=== PATIENT | male | born 1955 | race Caucasian/White ===

== ENCOUNTER 2017-01-20 19:37 | Inpatient (IN) ==
[2017-01-20 20:04] LABS: Bilirubin,Urine Negative (Negative); Blood,Urine Negative (Negative); Clarity,Urine Clear (Clear); Color,Urine Yellow (Yellow); Glucose,Urine (UA) Normal (Normal); Ketones,Urine Negative (Negative); Leukocyte Esterase,Urine Negative (Negative); Nitrite,Urine Negative (Negative); PH,Urine 6.5 pH Units (5.0-8.0); Protein,Urine Negative (Neg-Trace); Specific Gravity,Urine 1.017 (1.010-1.025); Urobilinogen,Urine Normal (Normal)
[2017-01-20] MEDS ORDERED: *HR* HYDROmorphone (PF) 1 MG/ML SYRINGE IVP ONE (20:08)
[2017-01-20] MEDS ORDERED: Famotidine 20 MG/2 ML VIAL IVP ONE (20:08)
[2017-01-20] MEDS ORDERED: Ondansetron 4 MG/2 ML VIAL IVP ONE (20:08)
--- NOTE | 2017-01-20 20:10 | Emergency Department Note ---
Disposition Clinical Impression: Small bowel obstruction Disposition: Admitted As Inpatient Condition: Good Referrals: NONE,PCP [Primary Care Provider] - Forms: ED Satisfaction Letter, Work/School Release General Adult HPI - General Chief complaint: ED Abdominal Pain Stated complaint: abd pain Time Seen by Provider: 01/20/17 19:59 Source: patient Limitations: no limitations - History of Present Illness Pain Scale: 7 - Related Data Allergies Allergy/AdvReac Type Severity Reaction Status Date / Time No Known Allergies Allergy Verified 01/20/17 19:56 Past Medical History - Past Medical History Medical history: Reports: hypertension Psychiatric history: Reports: no psych history - Social History Smoking Status: Never smoker Alcohol use: Reports: none Drug use: Reports: none Physical Exam - General Limitations: no limitations General appearance: alert, in no apparent distress Course Vital Signs Temperature 98 F 01/20/17 19:50 Pulse Rate 124 01/20/17 19:50 Respiratory Rate 20 01/20/17 19:50 Blood Pressure 131/84 01/20/17 19:50 O2 Sat by Pulse Oximetry 96 01/20/17 19:50 Temperature 98 F 01/20/17 19:50 Pulse Rate 110 01/20/17 21:55 Respiratory Rate 20 01/20/17 21:55 Blood Pressure 139/92 01/20/17 21:55 O2 Sat by Pulse Oximetry 96 01/20/17 21:55 Oxygen Delivery Oxygen Delivery Room Air Medical Decision Making - Lab Data Result diagrams: 01/20/17 20:15 01/20/17 20:15 Lab Results 01/20/17 01/20/17 01/20/17 Range/Units 19:45 20:15 20:15 WBC 9.9 (4.3-11.1) K/mcL RBC 4.79 (4.19-5.50) M/mcL Hgb 14.7 (12.9-16.9) g/dL Hct 43.5 (37.5-50.1) % MCV 90.8 (83.0-100.0) fL MCH 30.7 (28.0-33.3) pg MCHC 33.8 (31.6-35.5) g/dL RDW 13.1 (11.5-14.5) % Plt Count 249 (140-400) K/mcL MPV 9.6 (9.4-12.4) fL Immature Gran % 0.3 (0-4) % Seg Neutrophils % 75.1 % Lymphocytes % 12.0 % Monocytes % 10.4 % Eosinophils % 1.9 % Basophils % 0.3 % Neutrophils # 7.4 (1.6-8.9) K/mcL Lymphocytes # 1.2 (0.6-4.6) K/mcL Monocytes # 1.0 (0.0-1.3) K/mcL Eosinophils # 0.2 (0.0-0.6) K/mcL Basophils # 0.0 (0.0-0.2) K/mcL Immature Plt Fraction 3.2 (1.1-6.1) % PT (9.4-12.1) Seconds INR APTT (26.0-36.0) Seconds Sodium 137 (136-145) mEq/L Potassium 4.0 (3.5-4.5) mEq/L Chloride 104 (98-109) mEq/L Carbon Dioxide 23 (19-29) mEq/L BUN 15 (8-26) mg/dL Creatinine 1.08 (0.72-1.25) mg/dL Est GFR ( Amer) > 60 (> 60) Est GFR (Non-Af Amer) > 60 (> 60) BUN/Creatinine Ratio 14 (6-26) Glucose 114 H (70-99) mg/dL Calculated Osmolality 286 (280-300) Calcium 9.4 (8.6-10.8) mg/dL Total Bilirubin 0.8 (0.2-1.2) mg/dL Direct Bilirubin 0.4 (0.0-0.5) mg/dL Indirect Bilirubin 0.4 (0.0-1.2) mg/dL AST 57 H (5-34) Units/L ALT 97 H (0-55) Units/L Alkaline Phosphatase 106 (38-126) Units/L Troponin I (0-0.03) ng/mL Serum Total Protein 7.4 (6.0-8.3) g/dL Albumin 3.7 (3.5-5.0) g/dL Globulin 3.7 H (2.4-3.5) g/dL Albumin/Globulin Ratio 1.0 L (1.1-2.2) Lipase 13 (8-78) Units/L Urine Color Yellow (Yellow) Urine Clarity Clear (Clear) Urine pH 6.5 (5.0-8.0) pH Units Ur Specific [place] 1.017 (1.010-1.025) Urine Protein Negative (Neg-Trace) mg/dL Urine Glucose (UA) Normal (Normal) mg/dL Urine Ketones Negative (Negative) mg/dL Urine Blood Negative (Negative) Urine Nitrite Negative (Negative) Urine Bilirubin Negative (Negative) Urine Urobilinogen Normal (Normal) mg/dL Ur Leukocyte Esterase Negative (Negative) Ur Culture Indicated? NO (NO) 01/20/17 01/20/17 Range/Units 20:15 20:15 WBC (4.3-11.1) K/mcL RBC (4.19-5.50) M/mcL Hgb (12.9-16.9) g/dL Hct (37.5-50.1) % MCV (83.0-100.0) fL MCH (28.0-33.3) pg MCHC (31.6-35.5) g/dL RDW (11.5-14.5) % Plt Count (140-400) K/mcL MPV (9.4-12.4) fL Immature Gran % (0-4) % Seg Neutrophils % % Lymphocytes % % Monocytes % % Eosinophils % % Basophils % % Neutrophils # (1.6-8.9) K/mcL Lymphocytes # (0.6-4.6) K/mcL Monocytes # (0.0-1.3) K/mcL Eosinophils # (0.0-0.6) K/mcL Basophils # (0.0-0.2) K/mcL Immature Plt Fraction (1.1-6.1) % PT 12.2 H (9.4-12.1) Seconds INR 1.1 APTT 30.3 (26.0-36.0) Seconds Sodium (136-145) mEq/L Potassium (3.5-4.5) mEq/L Chloride (98-109) mEq/L Carbon Dioxide (19-29) mEq/L BUN (8-26) mg/dL Creatinine (0.72-1.25) mg/dL Est GFR ( Amer) (> 60) Est GFR (Non-Af Amer) (> 60) BUN/Creatinine Ratio (6-26) Glucose (70-99) mg/dL Calculated Osmolality (280-300) Calcium (8.6-10.8) mg/dL Total Bilirubin (0.2-1.2) mg/dL Direct Bilirubin (0.0-0.5) mg/dL Indirect Bilirubin (0.0-1.2) mg/dL AST (5-34) Units/L ALT (0-55) Units/L Alkaline Phosphatase (38-126) Units/L Troponin I 0.00 (0-0.03) ng/mL Serum Total Protein (6.0-8.3) g/dL Albumin (3.5-5.0) g/dL Globulin (2.4-3.5) g/dL Albumin/Globulin Ratio (1.1-2.2) Lipase (8-78) Units/L Urine Color (Yellow) Urine Clarity (Clear) Urine pH (5.0-8.0) pH Units Ur Specific [place] (1.010-1.025) Urine Protein (Neg-Trace) mg/dL Urine Glucose (UA) (Normal) mg/dL Urine Ketones (Negative) mg/dL Urine Blood (Negative) Urine Nitrite (Negative) Urine Bilirubin (Negative) Urine Urobilinogen (Normal) mg/dL Ur Leukocyte Esterase (Negative) Ur Culture Indicated? (NO) Attestation Statement - Attestation Attestation: I examined this patient and my medical decision-making was reviewed with the Resident Physician. I agree with the documented findings, disposition and treatment plan as described except to the extent set forth below. [id number] time provided Patient complains of upper abdominal pain for 3 days. Pain came on after eating [employer] 3 days ago. Positive for graphic Vang sign.
[2017-01-20 20:23] LABS: Basophils % 0.3 %; Eosinophils # 0.2 K/mcL (0.0-0.6); Eosinophils % 1.9 %; Hematocrit 43.5 % (37.5-50.1); Hemoglobin 14.7 g/dL (12.9-16.9); Immature Granulocytes % 0.3 % (0-4); Immature Platelets 3.2 % (1.1-6.1); Lymphocytes # 1.2 K/mcL (0.6-4.6); Mean Corpuscular HGB Conc 33.8 g/dL (31.6-35.5); Mean Corpuscular Hemoglobin 30.7 pg (28.0-33.3); Mean Corpuscular Volume 90.8 fL (83.0-100.0); Mean Platelet Volume 9.6 fL (9.4-12.4); Monocytes % 10.4 %; Neutrophils # 7.4 K/mcL (1.6-8.9); Platelet Count 249 K/mcL (140-400); Red Blood Count 4.79 M/mcL (4.19-5.50); Red Cell Distribution Width 13.1 % (11.5-14.5); Segmented Neutrophils % 75.1 %
[2017-01-20 20:37] LABS: Alanine Aminotransferase 97 Units/L (0-55); Albumin 3.7 g/dL (3.5-5.0); Alkaline Phosphatase 106 Units/L (38-126); Aspartate Amino Transferase 57 Units/L (5-34); BUN/Creatinine Ratio 14 (6-26); Bilirubin,Direct 0.4 mg/dL (0.0-0.5); Bilirubin,Indirect 0.4 mg/dL (0.0-1.2); Bilirubin,Total 0.8 mg/dL (0.2-1.2); Blood Urea Nitrogen 15 mg/dL (8-26); Calcium 9.4 mg/dL (8.6-10.8); Carbon Dioxide 23 mEq/L (19-29); Chloride 104 mEq/L (98-109); Globulin 3.7 g/dL (2.4-3.5); Glucose 114 mg/dL (70-99); Lipase 13 Units/L (8-78); Osmolality,Calculated 286 (280-300); Sodium 137 mEq/L (136-145); Total Protein 7.4 g/dL (6.0-8.3); eGFR For African Americans > 60 (> 60); eGFR For Non-African Americans > 60 (> 60)
--- NOTE | 2017-01-20 20:51 | Emergency Department Note ---
Disposition Clinical Impression: Small bowel obstruction Disposition: Admitted As Inpatient Condition: Good Referrals: NONE,PCP [Primary Care Provider] - Forms: ED Satisfaction Letter, Work/School Release Time of Disposition: 22:18 General Adult HPI - General Chief complaint: ED Abdominal Pain Stated complaint: abd pain Time Seen by Provider: 01/20/17 19:59 Source: patient Limitations: no limitations Nursing Notes Reviewed: Yes Vital Signs Reviewed: Yes - History of Present Illness HPI Narrative: 61-year-old male presenting to the emergency department with chief complaint of epigastric abdominal pain and nausea and vomiting. He states 2 days ago he started having severe epigastric pain and has been unable to hold any food down. Patient discloses severe nausea and vomiting multiple times. He denies any diarrhea or blood per rectum. Patient is diaphoretic and tachycardic in the room. He states he has no cardiac history. 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 Patient denies any recent sick contacts. Patient is on indomethacin twice a day for headaches. Patient tried Pepto-Bismol at home but it did not help with the symptoms. Pain Scale: 7 - Related Data Allergies Allergy/AdvReac Type Severity Reaction Status Date / Time No Known Allergies Allergy Verified 01/20/17 19:56 All systems ED: reviewed and negative except as stated. Constitutional: Reports: as per HPI Eyes: Reports: as per HPI ENT ED: Reports: as per HPI Cardiovascular: Denies: chest pain, palpitations Respiratory: Denies: cough, dyspnea, wheezes Gastrointestinal: Reports: abdominal pain, nausea, vomiting Genitourinary: Reports: as per HPI Musculoskeletal: Reports: as per HPI Integumentary: Reports: as per HPI Neurological: Denies: weakness, numbness, paresthesias Psychiatric: Reports: as per HPI Endocrine: Reports: as per HPI Hematological/Lymphatic: Reports: as per HPI Allergic/Immunologic: Reports: as per HPI Past Medical History - Past Medical History Attestation: Yes The following information was validated with the patient. Medical history: Reports: hypertension Psychiatric history: Reports: no psych history - Social History Smoking Status: Never smoker Alcohol use: Reports: none Drug use: Reports: none Physical Exam - General Limitations: no limitations General appearance: alert, in no apparent distress - Head Head exam: atraumatic, normocephalic, normal inspection - Chest Chest inspection: Present: normal inspection, symmetric chest wall rise. Absent : tenderness - Respiratory Respiratory exam: Present: normal lung sounds bilaterally. Absent: respiratory distress, wheezes - Cardiovascular Cardiovascular exam: Present: normal rhythm, tachycardia, normal heart sounds - Abdominal Exam Abdominal exam: Present: tenderness, distention, normal bowel sounds, incision ( Left flank), Vang's sign. Absent: guarding, rebound, rigidity, organomegaly Abdominal tenderness: Present: epigastrium, moderate - Extremities Exam Extremities exam: Present: normal inspection, full ROM - Neurological Exam Neurological exam: Present: alert, oriented X3 - Psychiatric Psychiatric exam: Present: normal affect, normal mood - Skin Skin exam: Present: warm, intact Course Course Narrative: 61-year-old male presenting to the emergency Department chief complaint of epigastric pain. Patient is diaphoretic and tachycardic in the room at this time. Vital signs are otherwise stable. He is alert and oriented and able to answer questions at this time. We will obtain basic lab work including right upper quadrant ultrasound in disposition depending results. - Reevaluation(s) Reevaluation #1: Patient's right upper quadrant ultrasound limited due to body habitus. Patient still having abdominal tenderness in the room. We will obtain a CT of the abdomen and pelvis at this time. Patient is alert and oriented 3 with stable vital signs. Time: 21:11 Reevaluation #2: Patients CT shows a SBO. I spoke with the surgeon expansion joint finisher Dr. Sun. He would like us to place an NG tube and the patient dropped coags at this time. He would like us to admit to hospitalist team with consult to surgery. We will page the hospitalist at this time. Time: 21:55 Reevaluation #3: Hospitalist Dr. Mcnair accepts the patient. Time: 22:18 Vital Signs Temperature 98 F 01/20/17 19:50 Pulse Rate 124 01/20/17 19:50 Respiratory Rate 20 01/20/17 19:50 Blood Pressure 131/84 01/20/17 19:50 O2 Sat by Pulse Oximetry 96 01/20/17 19:50 Temperature 98 F 01/20/17 19:50 Pulse Rate 110 01/20/17 21:55 Respiratory Rate 20 01/20/17 21:55 Blood Pressure 139/92 01/20/17 21:55 O2 Sat by Pulse Oximetry 96 01/20/17 21:55 Oxygen Delivery Oxygen Delivery Room Air Medical Decision Making - Lab Data Result diagrams: 01/20/17 20:15 01/20/17 20:15 Lab Results 01/20/17 01/20/17 01/20/17 Range/Units 19:45 20:15 20:15 WBC 9.9 (4.3-11.1) K/mcL RBC 4.79 (4.19-5.50) M/mcL Hgb 14.7 (12.9-16.9) g/dL Hct 43.5 (37.5-50.1) % MCV 90.8 (83.0-100.0) fL MCH 30.7 (28.0-33.3) pg MCHC 33.8 (31.6-35.5) g/dL RDW 13.1 (11.5-14.5) % Plt Count 249 (140-400) K/mcL MPV 9.6 (9.4-12.4) fL Immature Gran % 0.3 (0-4) % Seg Neutrophils % 75.1 % Lymphocytes % 12.0 % Monocytes % 10.4 % Eosinophils % 1.9 % Basophils % 0.3 % Neutrophils # 7.4 (1.6-8.9) K/mcL Lymphocytes # 1.2 (0.6-4.6) K/mcL Monocytes # 1.0 (0.0-1.3) K/mcL Eosinophils # 0.2 (0.0-0.6) K/mcL Basophils # 0.0 (0.0-0.2) K/mcL Immature Plt Fraction 3.2 (1.1-6.1) % Sodium 137 (136-145) mEq/L Potassium 4.0 (3.5-4.5) mEq/L Chloride 104 (98-109) mEq/L Carbon Dioxide 23 (19-29) mEq/L BUN 15 (8-26) mg/dL Creatinine 1.08 (0.72-1.25) mg/dL Est GFR ( Amer) > 60 (> 60) Est GFR (Non-Af Amer) > 60 (> 60) BUN/Creatinine Ratio 14 (6-26) Glucose 114 H (70-99) mg/dL Calculated Osmolality 286 (280-300) Calcium 9.4 (8.6-10.8) mg/dL Total Bilirubin 0.8 (0.2-1.2) mg/dL Direct Bilirubin 0.4 (0.0-0.5) mg/dL Indirect Bilirubin 0.4 (0.0-1.2) mg/dL AST 57 H (5-34) Units/L ALT 97 H (0-55) Units/L Alkaline Phosphatase 106 (38-126) Units/L Troponin I (0-0.03) ng/mL Serum Total Protein 7.4 (6.0-8.3) g/dL Albumin 3.7 (3.5-5.0) g/dL Globulin 3.7 H (2.4-3.5) g/dL Albumin/Globulin Ratio 1.0 L (1.1-2.2) Lipase 13 (8-78) Units/L Urine Color Yellow (Yellow) Urine Clarity Clear (Clear) Urine pH 6.5 (5.0-8.0) pH Units Ur Specific [place] 1.017 (1.010-1.025) Urine Protein Negative (Neg-Trace) mg/dL Urine Glucose (UA) Normal (Normal) mg/dL Urine Ketones Negative (Negative) mg/dL Urine Blood Negative (Negative) Urine Nitrite Negative (Negative) Urine Bilirubin Negative (Negative) Urine Urobilinogen Normal (Normal) mg/dL Ur Leukocyte Esterase Negative (Negative) Ur Culture Indicated? NO (NO) 01/20/17 Range/Units 20:15 WBC (4.3-11.1) K/mcL RBC (4.19-5.50) M/mcL Hgb (12.9-16.9) g/dL Hct (37.5-50.1) % MCV (83.0-100.0) fL MCH (28.0-33.3) pg MCHC (31.6-35.5) g/dL RDW (11.5-14.5) % Plt Count (140-400) K/mcL MPV (9.4-12.4) fL Immature Gran % (0-4) % Seg Neutrophils % % Lymphocytes % % Monocytes % % Eosinophils % % Basophils % % Neutrophils # (1.6-8.9) K/mcL Lymphocytes # (0.6-4.6) K/mcL Monocytes # (0.0-1.3) K/mcL Eosinophils # (0.0-0.6) K/mcL Basophils # (0.0-0.2) K/mcL Immature Plt Fraction (1.1-6.1) % Sodium (136-145) mEq/L Potassium (3.5-4.5) mEq/L Chloride (98-109) mEq/L Carbon Dioxide (19-29) mEq/L BUN (8-26) mg/dL Creatinine (0.72-1.25) mg/dL Est GFR ( Amer) (> 60) Est GFR (Non-Af Amer) (> 60) BUN/Creatinine Ratio (6-26) Glucose (70-99) mg/dL Calculated Osmolality (280-300) Calcium (8.6-10.8) mg/dL Total Bilirubin (0.2-1.2) mg/dL Direct Bilirubin (0.0-0.5) mg/dL Indirect Bilirubin (0.0-1.2) mg/dL AST (5-34) Units/L ALT (0-55) Units/L Alkaline Phosphatase (38-126) Units/L Troponin I 0.00 (0-0.03) ng/mL Serum Total Protein (6.0-8.3) g/dL Albumin (3.5-5.0) g/dL Globulin (2.4-3.5) g/dL Albumin/Globulin Ratio (1.1-2.2) Lipase (8-78) Units/L Urine Color (Yellow) Urine Clarity (Clear) Urine pH (5.0-8.0) pH Units Ur Specific [place] (1.010-1.025) Urine Protein (Neg-Trace) mg/dL Urine Glucose (UA) (Normal) mg/dL Urine Ketones (Negative) mg/dL Urine Blood (Negative) Urine Nitrite (Negative) Urine Bilirubin (Negative) Urine Urobilinogen (Normal) mg/dL Ur Leukocyte Esterase (Negative) Ur Culture Indicated? (NO) - EKG Data EKG #1 EKG attestation: Yes I reviewed and interpreted this EKG. EKG results narrative: Sinus tachycardia. 124 bpm. OH interval 149, QRS 74, QTc 359. Left axis deviation. Poor R-wave progression. No signs of acute ischemia or ST segment elevation.
[2017-01-20 22:12] LABS: INR 1.1; Prothrombin Time 12.2 Seconds (9.4-12.1)
[2017-01-20 22:14] LABS: Activated Partial Thrombo Time 30.3 Seconds (26.0-36.0)
--- NOTE | 2017-01-20 23:39 | Internal Med History&Physical ---
<Clarence Lisa - Last Filed: 01/21/17 02:04> Date of Encounter: 01/20/17 Time of Encounter: 23:38 Assessment and Plan (1) Small bowel obstruction Current visit: Yes Status: Acute CT abd/plv reveals high-grade small bowel obstruction, with transition point likely within right lower quadrant. No evidence of intra-abdominal free air. Scattered hypodense hepatic lesions RUQ U/S revealed increased echogenicity of the liver which can be seen in fatty change. NG tube was placed in ED, 700cc output Continue NG tube on low intermittent suction Zofran prn nausea Morphine prn pain NPO, bowel rest Surgeon/Dr. Sun consulted (2) History of ureter repair Current visit: Yes Status: Chronic Patient reports likely intra-abdominal scar tissue from two open abdominal surgeries 30 years ago due to cyst on his left ureter. CT abd/plv revealed bilateral renal lesions likely representing cysts. This can be confirmed with ultrasound, if clinically warranted. Renal cortical scarring involving left kidney. This may be sequela of prior pyelonephritis. Continue to monitor (3) HTN (hypertension) Current visit: Yes Status: Chronic Hold oral antihypertensive meds due to SBO Hydralazine IV prn SBP >160 Qualifiers: Hypertension type: unspecified Qualified Code(s): I10 - Essential (primary ) hypertension (4) Morbid obesity with BMI of 40.0-44.9, adult Current visit: Yes Status: Chronic Discussed diet modification and exercise with patient (5) DVT prophylaxis Current visit: Yes Status: Acute SCDs Internal Medicine - H&P: HPI Chief complaint: Abd pain Admitted From: Home Plans for Post Hospital Care: Home History of present illness: Mr. Charles is a 61 year old male with a PMH of HTN, chronic back pain, ureteral surgeries, and morbid obesity that presented from home c/o constant abd pain for the past 2 days. Pain is 7/10 severity, located in the epigastric region, and associated with anorexia, nausea, vomiting, diaphoresis, and palpitations. Leading forward makes pain somewhat better and nothing makes it worse. Patient tried Pepto-Bismol at home but it did not help with the symptoms. He reports bowel movement 3 days ago then had three loose bowel movements today prior to arrival. 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 Patient denies fever, chills, CP, SOB, hematemesis, hematochezia, melena, or recent sick contacts. Patient is on Indomethacin twice a day for headaches. In the ED, CT abd/plv revealed SBO, surgeon/Dr. Sun was consulted, and NG tube was placed. is at bedside. Past Med Surg Social Fam HX - Past Medical History Medical history: hypertension, other (chronic back pain, left ureteral cyst) Psychiatric history: no psych history - Past Surgical History Surgical History: orthopedic, other (back, rigth meniscus repair), ureteral stent (two open abdominal surgeries due to cyst on his left ureter) - Social History Smoking Status: Former smoker (quit 2008) Alcohol use: rarely Drug use: none Occupational status: employed Current living situation: Home, With Family Activity Level: Independent ambulation Recent Out of Country Travel Within the Last 8 Weeks: No Exposure or Possible Exposure to Illness During Travel: No - Family History Mother History Unknown: Yes Adopted: Yes Internal Medicine - H&P: Meds Cyclobenzaprine [Flexeril] 10 mg PO TID PRN 01/20/17 [History] Dicyclomine [Bentyl] 20 mg PO DAILY 01/20/17 [History] Indomethacin 75 mg PO DAILY 01/20/17 [History] Lisinopril [Zestril] 20 mg PO DAILY 01/20/17 [History] Multivitamin [One Daily Multivitamin] 1 each PO DAILY 01/20/17 [History] Niacin [Plain Niacin] 500 mg PO DAILY 01/20/17 [History] Omeprazole [PriLOSEC] 40 mg PO DAILY 01/20/17 [History] Oxycodone HCl/Acetaminophen [Percocet 5-325 mg Tablet] 1 each PO Q8H PRN [History] 3 Allergy/AdvReac Type Severity Reaction Status Date / Time No Known Allergies Allergy Verified 01/20/17 19:56 All Systems PM: A 10-system review of systems was performed and is negative for pertinent findings except as documented above in the HPI. - Constitutional Constitutional: anorexia, no chills, no fatigue, no fever(s), no lethargy, no weakness, no weight gain, no weight loss - EENT Eyes: no change in vision Nose, mouth and throat: no nasal congestion, no sinus pressure, no sore throat - Cardiovascular Cardiovascular ROS IM: palpitations, no chest pain - Respiratory Respiratory: no cough, no excessive phlegm production - Gastrointestinal Gastrointestinal: abdominal pain, diarrhea, loose stools, nausea, vomiting, no constipation, no hematemesis, no hematochezia - Genitourinary Genitourinary ROS male: no difficulty urinating, no urinary frequency, no urinary urgency - Musculoskeletal Musculoskeletal ROS IM: back pain, no numbness, no tingling - Neurological Neurological ROS: no confusion, no numbness, no tingling, no weakness - Psychiatric Psychiatric: no anxiety, no depression - Endocrine Endocrine IM: no polydipsia, no polyphagia, no polyuria - Hematologic/Lymphatic Hematologic/Lymphatic: no easy bleeding, no easy bruising - Constitutional Vitals: Temp Pulse Resp BP Pulse Ox 98.0 F 118 14 148/89 94 01/20/17 23:07 01/20/17 23:07 01/20/17 23:07 01/20/17 23:07 01/20/17 23:07 General appearance: Present: cooperative, mild distress, A&O X 3, morbidly obese , pleasant, answers questions appropriately - Head Head exam: Present: atraumatic, normal inspection, normocephalic - Eye Eye exam: Present: EOMI, PERRL - ENT ENT exam: Present: mucous membranes dry, normal oropharynx Additional comments: NG tube in place - Neck Neck exam general surgery: Present: normal inspection, supple. Absent: tenderness - Respiratory Respiratory exam: Present: CTAB. Absent: wheezes - Cardiovascular Cardiovascular exam: Present: +S1, +S2, tachycardia - GI/Abdominal GI/Abdominal exam: Present: distended, hypoactive bowel sounds, soft, tenderness (epigastric). Absent: guarding Additional comments: two large well healed incisions left lateral abdomen - Extremities Exam Extremities exam: Present: full ROM, warm, radial pulses palpable and symmetrical. Absent: pedal edema, tenderness - Back Exam Back exam: Present: normal inspection. Absent: CVA tenderness (L), CVA tenderness (R), paraspinal tenderness, tenderness, vertebral tenderness - Neurological Exam Neurological exam: Present: alert, oriented X3, no focal deficits. Absent: altered, speech deficit - Psychiatric Psychiatric exam: Present: normal affect, normal mood - Skin Skin exam: Present: dry, normal color, warm Additional comments: tattoos, two large well healed incisions left lateral abdomen Internal Med - H&P Results - Labs CBC & Chem 7: 01/20/17 20:15 01/20/17 20:15 - EKG Data -: EKG Interpreted by Myself EKG shows normal: sinus rhythm, ST-T waves Rate: tachycardia (Sinus tachycardia. HR 124 bpm. CA interval 149, QRS 74, QTc 359. Left axis deviation. Poor R-wave progression. No signs of acute ischemia or ST segment elevation.) <Luz Elena Mcnair - Last Filed: 01/21/17 04:16> Date of Encounter: 01/21/17 Internal Medicine - H&P: HPI History of present illness: Mr. Charles is a 61 year old male All Systems PM: A 10-system review of systems was performed and is negative for pertinent findings except as documented above in the HPI. - Constitutional Vitals: Temp Pulse Resp BP Pulse Ox 98.7 F 113 14 134/83 94 01/21/17 03:29 01/21/17 03:29 01/21/17 03:29 01/21/17 03:29 01/21/17 03:29 Internal Med - H&P Results - Labs CBC & Chem 7: 01/20/17 20:15 01/20/17 20:15 - Attending Attestation I have seen and examined the patient independently. I have discussed with resident DR Lisa regarding the management plan. Agree with the documentation. Patient presented with abdominal pain, nausea, and vomiting. CT abdomen shows small bowel obstruction. Patient has history of abdominal surgery in 1980s. Probably surgical scar caused obstruction. Patient was placed on nothing by mouth, NG tube with intermittent low pressure suction, IV fluid, and pain medication. Surgery was counsulted and will see patient
[2017-01-21] MEDS: *HR* Morphine 2 MG/ML SYRINGE IVP PRN ×2 (00:11→05:31)
[2017-01-21] MEDS: Pantoprazole 40 MG VIAL IVP SCH ×2 (00:13→05:34)
[2017-01-21] MEDS: 0.9 % Sodium Chloride 1,000 ML IVC SCH ×3 (00:14→17:19)
[2017-01-21] MEDS ORDERED: Chloraseptic Spray 177 ML BOTTLE MM PRN (01:15)
[2017-01-21 04:58] LABS: Basophils % 0.4 %; Eosinophils # 0.2 K/mcL (0.0-0.6); Eosinophils % 2.1 %; Hematocrit 41.9 % (37.5-50.1); Hemoglobin 13.8 g/dL (12.9-16.9); Immature Granulocytes % 0.2 % (0-4); Lymphocytes # 0.9 K/mcL (0.6-4.6); Lymphocytes % 9.7 %; Mean Corpuscular HGB Conc 32.9 g/dL (31.6-35.5); Mean Corpuscular Hemoglobin 30.5 pg (28.0-33.3); Mean Corpuscular Volume 92.5 fL (83.0-100.0); Mean Platelet Volume 9.6 fL (9.4-12.4); Monocytes # 1.2 K/mcL (0.0-1.3); Monocytes % 12.8 %; Neutrophils # 7.1 K/mcL (1.6-8.9); Platelet Count 206 K/mcL (140-400); Red Blood Count 4.53 M/mcL (4.19-5.50); Red Cell Distribution Width 13.3 % (11.5-14.5); Segmented Neutrophils % 74.8 %
[2017-01-21 05:18] LABS: Alanine Aminotransferase 90 Units/L (0-55); Albumin 3.4 g/dL (3.5-5.0); Albumin/Globulin Ratio 0.9 (1.1-2.2); Alkaline Phosphatase 96 Units/L (38-126); Aspartate Amino Transferase 44 Units/L (5-34); BUN/Creatinine Ratio 14 (6-26); Bilirubin,Total 0.7 mg/dL (0.2-1.2); Blood Urea Nitrogen 16 mg/dL (8-26); Calcium 9.1 mg/dL (8.6-10.8); Carbon Dioxide 26 mEq/L (19-29); Chloride 104 mEq/L (98-109); Globulin 3.6 g/dL (2.4-3.5); Glucose 105 mg/dL (70-99); Osmolality,Calculated 288 (280-300); Potassium 4.2 mEq/L (3.5-4.5); Sodium 138 mEq/L (136-145); eGFR For African Americans > 60 (> 60); eGFR For Non-African Americans > 60 (> 60)
[2017-01-21] MEDS: *HR* Heparin 5,000 UNIT/ML VIAL SQ SCH ×2 (05:36→17:20)
--- NOTE | 2017-01-21 08:03 | General Surgery Consult Note ---
<Jose D Sun - Last Filed: 01/21/17 12:33> Date of Encounter: 01/21/17 Medications and Allergies Cyclobenzaprine [Flexeril] 10 mg PO TID PRN 01/20/17 [History] Dicyclomine [Bentyl] 20 mg PO DAILY 01/20/17 [History] Indomethacin 75 mg PO DAILY 01/20/17 [History] Lisinopril [Zestril] 20 mg PO DAILY 01/20/17 [History] Multivitamin [One Daily Multivitamin] 1 each PO DAILY 01/20/17 [History] Niacin [Plain Niacin] 500 mg PO DAILY 01/20/17 [History] Omeprazole [PriLOSEC] 40 mg PO DAILY 01/20/17 [History] Oxycodone HCl/Acetaminophen [Percocet 5-325 mg Tablet] 1 each PO Q8H PRN [History] 3 Allergy/AdvReac Type Severity Reaction Status Date / Time No Known Allergies Allergy Verified 01/20/17 19:56 Review of Systems All systems PM: A 10-system review of systems was performed and is negative for pertinent findings except as documented above in the HPI. General Surgery Exam Initial Vital Signs Temp Pulse Resp BP Pulse Ox 98 F 124 20 131/84 96 01/20/17 19:50 01/20/17 19:50 01/20/17 19:50 01/20/17 19:50 01/20/17 19:50 Exam Initial Vital Signs Temp Pulse Resp BP Pulse Ox 98 F 124 20 131/84 96 01/20/17 19:50 01/20/17 19:50 01/20/17 19:50 01/20/17 19:50 01/20/17 19:50 Results - Labs 01/21/17 04:49 01/21/17 04:49 Abnormal lab results PT 12.2 Seconds (9.4-12.1) H 01/20/17 20:15 Glucose 105 mg/dL (70-99) H 01/21/17 04:49 POC Glucose 107 (58-89) H 01/21/17 10:53 AST 44 Units/L (5-34) H 01/21/17 04:49 ALT 90 Units/L (0-55) H 01/21/17 04:49 Albumin 3.4 g/dL (3.5-5.0) L 01/21/17 04:49 Globulin 3.6 g/dL (2.4-3.5) H 01/21/17 04:49 Albumin/Globulin Ratio 0.9 (1.1-2.2) L 01/21/17 04:49 Diabetes panel 01/21/17 Range/Units 04:49 Sodium 138 (136-145) mEq/L Potassium 4.2 (3.5-4.5) mEq/L Chloride 104 (98-109) mEq/L Carbon Dioxide 26 (19-29) mEq/L BUN 16 (8-26) mg/dL Creatinine 1.13 (0.72-1.25) mg/dL Glucose 105 H (70-99) mg/dL Calcium 9.1 (8.6-10.8) mg/dL AST 44 H (5-34) Units/L ALT 90 H (0-55) Units/L Alkaline Phosphatase 96 (38-126) Units/L Albumin 3.4 L (3.5-5.0) g/dL Calcium panel 01/21/17 Range/Units 04:49 Calcium 9.1 (8.6-10.8) mg/dL Albumin 3.4 L (3.5-5.0) g/dL Pituitary panel 01/21/17 Range/Units 04:49 Sodium 138 (136-145) mEq/L Potassium 4.2 (3.5-4.5) mEq/L Chloride 104 (98-109) mEq/L Carbon Dioxide 26 (19-29) mEq/L BUN 16 (8-26) mg/dL Creatinine 1.13 (0.72-1.25) mg/dL Glucose 105 H (70-99) mg/dL Calcium 9.1 (8.6-10.8) mg/dL Adrenal panel 01/21/17 Range/Units 04:49 Sodium 138 (136-145) mEq/L Potassium 4.2 (3.5-4.5) mEq/L Chloride 104 (98-109) mEq/L Carbon Dioxide 26 (19-29) mEq/L BUN 16 (8-26) mg/dL Creatinine 1.13 (0.72-1.25) mg/dL Glucose 105 H (70-99) mg/dL Calcium 9.1 (8.6-10.8) mg/dL Total Bilirubin 0.7 (0.2-1.2) mg/dL AST 44 H (5-34) Units/L ALT 90 H (0-55) Units/L Alkaline Phosphatase 96 (38-126) Units/L Albumin 3.4 L (3.5-5.0) g/dL All other labs normal. Consult Discharge Plan - Plan Referrals: NONE,PCP [Primary Care Provider] - - Attending Attestation I have personally performed a face to face evaluation on this patient. I have reviewed and agree with the care plan. History and Exam by me shows: Personal review the above assessment and evaluation and agree with the above plan. The patient has had previous surgical procedure with 2 laparotomy incisions on the left flank for kidney related issues. Several-day history of abdominal pain and abdominal distention. He had nausea and vomiting and has a NG tube placed at this time. On examination he has noted mild tenderness to moderate palpation and has some tympany on exam. His NG tube did drain 1200 mL of fluid upon placement. He states he did pass flatus today and had diarrhea yesterday. Overall he seems to be exhibiting signs of a partial small bowel obstruction and I do agree with continued NG tube decompression and serial abdominal exams. I explained that we have not completely ruled out the possibility he may need a surgical intervention think we are going in the right direction. Continue with current therapy and IV fluid hydration. Patient and family member agrees to the above plan. <Tricia Fernandes - Last Filed: 01/21/17 14:32> Date of Encounter: 01/21/17 Time of Encounter: 08:02 Assessment and Plan (1) Small bowel obstruction Current Visit: Yes Status: Acute Abdomen pelvis CT, clinical history and exam, are consistent with a small bowel obstruction. Surgery will continue to follow along with you. Thank you for allowing us to participate in Mr. Charles's care. Plan: -continue supportive care and discomfort management -serial abdominal exams -continue NG to low intermittent wall suction -continue NPO -continue G.I. prophylaxis -His CBC is unremarkable at this time. he is noted to have a low grade fever, no other indications of sepsis or acute surgical abdomen. The above assessment plan was reviewed with the patient who verbalizes understanding and adherence. (2) Tachycardia Current Visit: Yes Status: Acute See above for further assessment and plan. Pt denies cardiac history, but has poor R wave progression and presumed new LAD. (3) DVT prophylaxis Current Visit: Yes Status: Acute Patient was tachycardic upon presentation and remains tachy. Although he does have a small bowel obstruction, given his recent surgical procedure ruling out DVT/PE is not out of the question. Management per primary team, and continue to follow along. (4) HTN (hypertension) Current Visit: Yes Status: Chronic Qualifiers: Hypertension type: essential hypertension Qualified Code(s): I10 - Essential (primary) hypertension (5) Morbid obesity with BMI of 40.0-44.9, adult Current Visit: Yes Status: Chronic History of Present Illness Consult date: 01/20/17 (Dr. Sun) Reason for consult: abdominal pain (Possible SBO) Requesting physician: Jayjay Sotelo History of present illness: Jacques is a pleasant, 61-year-old, male with a past medical history of hypertension, obesity, Gerd, unspecified renal blockage, and a surgical history of right knee arthroscopic and left kidney angioplasty (patient is unsure of timing or what exactly led to the blockage). He reports he completed a colonoscopy approximately 5 years ago through [facility] and that he was told his results were normal. He recently (one month ago) completed his right knee arthroplasty and was intermittently taking pain medication. Per the hospital course below, surgery has been asked to evaluate the patient for small bowel obstruction. He presented for a 2-day history of epigastric pain, nausea, and vomiting ( fecal material). He was tachy and diaphoretic upon ED presentation. He reports a A right upper quadrant ultrasound revealed increased echogenicity of the liver which could be seen in fatty changes. A CT of the abdomen and pelvis with out contrast demonstrated concern for high-grade small bowel obstruction with transition point likely within the right lower quadrant. There was no evidence of intra-abdominal free air. Incidental findings included: noted scattered hypodense hepatic lesions and bilateral renal lesions that were too small to characterize likely represented cysts. Renal cortical scarring involving the left kidney was noted (consistent with pt's previous renal surgery ). His WBC was unremarkable. His BMP noted elevated liver functions with an AST of 57 and ALT of 97. These have subsequently decreased to 44 and 90 respectively. His lipase was normal. And in G-tube was placed in the emergency department and returned 1200 mL of output. Record review of the ED documentation reveals an EKG with ST (124) normal MS interval, LAD, and poor R wave progression. His TNI was negative. There is no d-dimer, CXR, or CT of chest. He denies calf or leg pain. Presently, He denies fevers, but reports chills yesterday. Denies headache, dizziness, or weakness. He endorses abdominal discomfort in the epigastric area , nausea, vomiting, constipation and watery diarrhea yesterday. He denies black bloodier tarry stool. He denies urinary symptoms. Jacques reports that since the NG tube has been placed his abdomen discomfort has reduced slightly. He denies passing gas or bowel movement since admission to the hospital. He denies a cardiovascular history or symptoms of angina prior to admission, but states he had not been reacted due to his recent knee. Past Med Surg Social Fam HX - Past Medical History Source: patient, old records reviewed Medical history: GERD, hypertension, other (chronic back pain, left ureteral cyst, obesity, left renal blockage, right knee meniscus tear) Psychiatric history: no psych history - Past Surgical History Surgical History: orthopedic, other (back, rigth meniscus repair), ureteral stent (two open abdominal surgeries due to cyst on his left ureter) - Social History Smoking Status: Former smoker (quit 2008) Alcohol use: rarely Drug use: none - Family History Mother History Unknown: Yes Adopted: Yes Review of Systems All systems PM: A 10-system review of systems was performed and is negative for pertinent findings except as documented above in the HPI. General Surgery Exam Initial Vital Signs Temp Pulse Resp BP Pulse Ox 98 F 124 20 131/84 96 01/20/17 19:50 01/20/17 19:50 01/20/17 19:50 01/20/17 19:50 01/20/17 19:50 - General physical appearance well developed, well nourished, no distress, moderate pain, obese - Eyes other (Glasses noted), PERRL, normal ocular movement - ENT normal mucosa, no congestion, atraumatic, normocephalic, Other (NG to right nares noted) - Neck no masses, trachea midline, no venous distension - Respiratory normal respiratory effort, clear to auscultation. negative: normal expansion ( Decreased expansion bilateral) - Cardiovascular Cardiovascular exam: Present: RRR, distant heart sounds - Abdomen Abdomen general surgery: Present: distended, tender. Absent: bowel sounds present (High-picked, tinkling BS infrequently), soft (Firm) Abdominal Tenderness: Present: epigastic Hernia: Present: none - Integumentary Integumentary general surgery: Present: warm and dry, no abnormal pigmentation - Musculoskeletal Present: normal gait, normal posture - Psychiatric Psychiatric general surgery: Present: A&Ox3, appropriate, oriented to person, oriented to place, oriented to time, speech is normal, memory intact Exam Initial Vital Signs Temp Pulse Resp BP Pulse Ox 98 F 124 20 131/84 96 01/20/17 19:50 01/20/17 19:50 01/20/17 19:50 01/20/17 19:50 01/20/17 19:50 Results - Labs 01/21/17 04:49 01/21/17 04:49 Abnormal lab results PT 12.2 Seconds (9.4-12.1) H 01/20/17 20:15 Glucose 105 mg/dL (70-99) H 01/21/17 04:49 POC Glucose 99 (58-89) H 01/21/17 05:12 AST 44 Units/L (5-34) H 01/21/17 04:49 ALT 90 Units/L (0-55) H 01/21/17 04:49 Albumin 3.4 g/dL (3.5-5.0) L 01/21/17 04:49 Globulin 3.6 g/dL (2.4-3.5) H 01/21/17 04:49 Albumin/Globulin Ratio 0.9 (1.1-2.2) L 01/21/17 04:49 Diabetes panel 01/21/17 Range/Units 04:49 Sodium 138 (136-145) mEq/L Potassium 4.2 (3.5-4.5) mEq/L Chloride 104 (98-109) mEq/L Carbon Dioxide 26 (19-29) mEq/L BUN 16 (8-26) mg/dL Creatinine 1.13 (0.72-1.25) mg/dL Glucose 105 H (70-99) mg/dL Calcium 9.1 (8.6-10.8) mg/dL AST 44 H (5-34) Units/L ALT 90 H (0-55) Units/L Alkaline Phosphatase 96 (38-126) Units/L Albumin 3.4 L (3.5-5.0) g/dL Calcium panel 01/21/17 Range/Units 04:49 Calcium 9.1 (8.6-10.8) mg/dL Albumin 3.4 L (3.5-5.0) g/dL Pituitary panel 01/21/17 Range/Units 04:49 Sodium 138 (136-145) mEq/L Potassium 4.2 (3.5-4.5) mEq/L Chloride 104 (98-109) mEq/L Carbon Dioxide 26 (19-29) mEq/L BUN 16 (8-26) mg/dL Creatinine 1.13 (0.72-1.25) mg/dL Glucose 105 H (70-99) mg/dL Calcium 9.1 (8.6-10.8) mg/dL Adrenal panel 01/21/17 Range/Units 04:49 Sodium 138 (136-145) mEq/L Potassium 4.2 (3.5-4.5) mEq/L Chloride 104 (98-109) mEq/L Carbon Dioxide 26 (19-29) mEq/L BUN 16 (8-26) mg/dL Creatinine 1.13 (0.72-1.25) mg/dL Glucose 105 H (70-99) mg/dL Calcium 9.1 (8.6-10.8) mg/dL Total Bilirubin 0.7 (0.2-1.2) mg/dL AST 44 H (5-34) Units/L ALT 90 H (0-55) Units/L Alkaline Phosphatase 96 (38-126) Units/L Albumin 3.4 L (3.5-5.0) g/dL All other labs normal. - Imaging Additional studies: Gallbladder Ultrasound 01/20/17 20:07 IMPRESSION: Increased echogenicity of the liver which can be seen in fatty change. D/ / Cherelle Richard MD / Cherelle Richard MD Interpreting Provider: Cherelle Richard MD Abdomen/Pelvis CT 01/20/17 21:08 IMPRESSION: 1. Findings concerning for high-grade small bowel obstruction, with transition point likely within right lower quadrant. No evidence of intra-abdominal free air. 2. Scattered hypodense hepatic lesions, and bilateral renal lesions are too small to characterize definitively on a noncontrast examination. These are statistically likely represents cysts. This can be confirmed with ultrasound, if clinically warranted. 3. Renal cortical scarring involving left kidney. This may be sequela of prior pyelonephritis. D/ / Cory Antoine MD / Cory Antoine MD Interpreting Provider: Cory Antoine MD
--- NOTE | 2017-01-21 14:26 | Internal Med Progress Note ---
Date of Encounter: 01/21/17 Time of Encounter: 08:55 - Assessment and plan (1) Small bowel obstruction Current Visit: Yes Status: Acute Assessment and plan: Partial versus complete. Did have a bowel movement yesterday. Surgery consulted. We will follow recommendations. Continue NG tube to low intermittent suction. Continue supportive care and IV hydration. Monitor vital signs. Abdominal x-ray shows dilated small bowel loops. Moderate risk for complications. (2) HTN (hypertension) Current Visit: Yes Status: Chronic Assessment and plan: Well-controlled. Qualifiers: Hypertension type: essential hypertension Qualified Code(s): I10 - Essential (primary) hypertension (3) Morbid obesity with BMI of 40.0-44.9, adult Current Visit: Yes Status: Chronic (4) Tachycardia Current Visit: Yes Status: Acute Assessment and plan: Patient is tachycardic. Denies any palpitations. We will check thyroid profile and also get an EKG. - Subjective Interval history: Patient feels somewhat better today but continues to have abdominal distention and discomfort. Had about 1500 mL NG tube output since last night. Has not had any bowel movement today. Denies any flatus. He did have a bowel movement last night - Constitutional Vitals: Temp Pulse Resp BP Pulse Ox 98.5 F 110 16 110/67 94 01/21/17 14:00 01/21/17 14:00 01/21/17 14:00 01/21/17 14:00 01/21/17 14:00 General appearance: Present: cooperative, mild distress, A&O X 3, morbidly obese , pleasant, answers questions appropriately - Respiratory Respiratory exam: Present: CTAB. Absent: accessory muscle use, rales, rhonchi, wheezes - Cardiovascular Cardiovascular exam: Present: RRR, +S1, +S2, tachycardia. Absent: diastolic murmur, gallop, rubs, systolic murmur - GI/Abdominal GI/Abdominal exam: Present: diminished bowel sounds, distended, soft, tenderness (Generalized), no peritoneal signs - Extremities Exam Extremities exam: Present: warm, radial pulses palpable and symmetrical. Absent : calf tenderness, cyanotic, pedal edema Internal Medicine: Result - Labs CBC & Chem 7: 01/21/17 04:49 01/21/17 04:49 Labs: Short CBC 01/21/17 Range/Units 04:49 WBC 9.4 (4.3-11.1) K/mcL Hgb 13.8 (12.9-16.9) g/dL Hct 41.9 (37.5-50.1) % Plt Count 206 (140-400) K/mcL Neutrophils # 7.1 (1.6-8.9) K/mcL BMP 01/21/17 04:49 Sodium 138 Potassium 4.2 Chloride 104 Carbon Dioxide 26 BUN 16 Creatinine 1.13 Glucose 105 H Calcium 9.1 Liver Function 01/21/17 Range/Units 04:49 Total Bilirubin 0.7 (0.2-1.2) mg/dL AST 44 H (5-34) Units/L ALT 90 H (0-55) Units/L Alkaline Phosphatase 96 (38-126) Units/L Albumin 3.4 L (3.5-5.0) g/dL - ABG Interpretation ABG results: PT/INR, D-dimer PT 12.2 Seconds (9.4-12.1) H 01/20/17 20:15 - Impressions Impressions KUB X-Ray 01/21/17 10:57 IMPRESSION: No significant change in dilated small bowel loops 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 Findings are concerning for persistent bowel obstruction. Tip of nasogastric tube projects over gastroesophageal junction. Recommend repositioning. D/ / Cory Antoine MD / Cory Antoine MD Interpreting Provider: Cory Antoine MD Consult Discharge Plan - Plan Referrals: NONE,PCP [Primary Care Provider] -
[2017-01-22 04:47] LABS: Basophils % 0.4 %; Eosinophils # 0.2 K/mcL (0.0-0.6); Eosinophils % 2.8 %; Hematocrit 38.6 % (37.5-50.1); Hemoglobin 12.8 g/dL (12.9-16.9); Immature Granulocytes % 0.4 % (0-4); Lymphocytes % 12.4 %; Mean Corpuscular HGB Conc 33.2 g/dL (31.6-35.5); Mean Corpuscular Hemoglobin 30.5 pg (28.0-33.3); Mean Corpuscular Volume 91.9 fL (83.0-100.0); Mean Platelet Volume 9.6 fL (9.4-12.4); Monocytes # 0.9 K/mcL (0.0-1.3); Neutrophils # 5.9 K/mcL (1.6-8.9); Platelet Count 193 K/mcL (140-400); Red Cell Distribution Width 13.2 % (11.5-14.5)
[2017-01-22 04:57] LABS: BUN/Creatinine Ratio 17 (6-26); Blood Urea Nitrogen 15 mg/dL (8-26); Calcium 8.5 mg/dL (8.6-10.8); Carbon Dioxide 23 mEq/L (19-29); Chloride 107 mEq/L (98-109); Glucose 85 mg/dL (70-99); Osmolality,Calculated 288 (280-300); Potassium 3.8 mEq/L (3.5-4.5); Sodium 139 mEq/L (136-145); eGFR For African Americans > 60 (> 60); eGFR For Non-African Americans > 60 (> 60)
[2017-01-22] MEDS: Pantoprazole 40 MG VIAL IVP SCH (05:35)
[2017-01-22] MEDS: *HR* Heparin 5,000 UNIT/ML VIAL SQ SCH ×2 (05:37→17:36)
[2017-01-22 05:45] LABS: Thyroid Stimulating Hormone 1.701 mcIU/mL (0.350-4.840)
[2017-01-22] MEDS ORDERED: 0.9 % Sodium Chloride 500 ML IVC ONE (09:52)
[2017-01-22] MEDS: 0.9 % Sodium Chloride 1,000 ML IVC SCH ×2 (10:45→20:35)
--- NOTE | 2017-01-22 11:52 | Internal Med Progress Note ---
Date of Encounter: 01/22/17 Time of Encounter: 09:00 - Assessment and plan (1) Small bowel obstruction Current Visit: Yes Status: Acute Assessment and plan: Continue current management with NG tube to low intermittent suction, IV hydration. Keep nothing by mouth. Follow surgery recommendations. Repeat x- ray ordered for today. We will follow results. Remains at moderate risk for complications. DVT prophylaxis with subcutaneous heparin (2) HTN (hypertension) Current Visit: Yes Status: Chronic Assessment and plan: Continue to monitor blood pressure. We will add hydralazine intravenously to keep blood pressure less than 160 systolic. Qualifiers: Hypertension type: essential hypertension Qualified Code(s): I10 - Essential (primary) hypertension (3) Morbid obesity with BMI of 40.0-44.9, adult Current Visit: Yes Status: Chronic (4) Tachycardia Current Visit: Yes Status: Acute Assessment and plan: Patient remains tachycardic but stable. Heart rate in the low 100. Regular rhythm. Sinus tachycardia. Thyroid profile is normal. Patient denies any palpitations. No further intervention needed at this time. - Subjective Interval history: Patient continues to improve slowly. Abdomen is less distended. He has not had any bowel movement or passed flatus since yesterday. But pain in abdomen is improving. He has had about 1800 mL of NG tube drainage through yesterday. Since this morning is had about 350 mL drained. - Constitutional Vitals: Temp Pulse Resp BP Pulse Ox 98.6 F 106 16 155/98 95 01/22/17 06:52 01/22/17 06:52 01/22/17 06:52 01/22/17 06:52 01/22/17 06:52 General appearance: Present: cooperative, mild distress, A&O X 3, morbidly obese , pleasant, answers questions appropriately - ENT Additional comments: NG tube in place - Neck Neck exam general surgery: Present: supple, trachea midline. Absent: lymphadenopathy - Cardiovascular Cardiovascular exam: Present: RRR, +S1, +S2. Absent: diastolic murmur, gallop, rubs, systolic murmur - GI/Abdominal GI/Abdominal exam: Present: diminished bowel sounds, distended, soft, no peritoneal signs. Absent: tenderness - Extremities Exam Extremities exam: Present: warm, radial pulses palpable and symmetrical. Absent : calf tenderness, cyanotic, pedal edema - Neurological Exam Neurological exam: Present: alert, oriented X3, no focal deficits. Absent: facial droop, speech deficit - Skin Skin exam: Present: dry, intact Internal Medicine: Result - Labs CBC & Chem 7: 01/22/17 03:54 01/22/17 03:54 Labs: Short CBC 01/22/17 Range/Units 03:54 WBC 8.0 (4.3-11.1) K/mcL Hgb 12.8 L (12.9-16.9) g/dL Hct 38.6 (37.5-50.1) % Plt Count 193 (140-400) K/mcL Neutrophils # 5.9 (1.6-8.9) K/mcL BMP 01/21/17 01/22/17 04:49 03:54 Sodium 138 139 Potassium 4.2 3.8 Chloride 104 107 Carbon Dioxide 26 23 BUN 16 15 Creatinine 1.13 0.89 Glucose 105 H 85 Calcium 9.1 8.5 L Liver Function 01/21/17 Range/Units 04:49 Total Bilirubin 0.7 (0.2-1.2) mg/dL AST 44 H (5-34) Units/L ALT 90 H (0-55) Units/L Alkaline Phosphatase 96 (38-126) Units/L Albumin 3.4 L (3.5-5.0) g/dL - ABG Interpretation ABG results: PT/INR, D-dimer PT 12.2 Seconds (9.4-12.1) H 01/20/17 20:15 - Impressions Impressions KUB X-Ray 01/21/17 10:57 IMPRESSION: No significant change in dilated small bowel loops 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 Findings are concerning for persistent bowel obstruction. Tip of nasogastric tube projects over gastroesophageal junction. Recommend repositioning. D/ / Cory Antoine MD / Cory Antoine MD Interpreting Provider: Cory Antoine MD Chest/Abdomen X-ray 01/22/17 08:35 IMPRESSION: Nasogastric tube in appropriate position. Decreasing number and caliber of dilated small bowel loops. The largest small bowel loop now measures up to 4.2 cm in diameter. D/ / Luis Daniel Estrada MD / Luis Daniel Estrada MD Interpreting Provider: Luis Daniel Estrada MD Consult Discharge Plan - Plan Referrals: NONE,PCP [Primary Care Provider] -
--- NOTE | 2017-01-22 12:12 | General Surgery Progress Note ---
Date of Encounter: 01/22/17 Time of Encounter: 08:20 - Assessment and Plan (1) Small bowel obstruction Current Visit: Yes Status: Acute Abdomen pelvis CT, clinical history and exam, are consistent with a small bowel obstruction. Surgery will continue to follow along with you. Thank you for allowing us to participate in Mr. Charles's care. Patients states that his abdominal pain is improving. NO flatus/ BM for the last 24 hrs. Acute abdominal series x-ray ordered and reported decreasing number/ caliber of dilated small bowl loops max is now 4.2 cm diameter (previously 5cm). Will restart IV fluids and give 500ml bolus as patient has had 1800ml of NG output last 24 hrs. Plan: - IV fluid hydration NS @100ml/hr -repeat labs tomorrow - possible small bowel follow through tomorrow if no advances in clinical improvement. - continue supportive care and discomfort management -serial abdominal exams -continue NG to low intermittent wall suction -continue NPO -continue G.I. prophylaxis (2) Tachycardia Current Visit: Yes Status: Acute See above for further assessment and plan. Pt denies cardiac history, but has poor R wave progression and presumed new LAD. No elevated WBC or source of infection. (3) DVT prophylaxis Current Visit: Yes Status: Acute Patient was tachycardic upon presentation and remains tachy. Although he does have a small bowel obstruction, given his recent surgical procedure ruling out DVT/PE is not out of the question. Management per primary team, and continue to follow along. SQ Heparin. Subjective Narrative: Patient is a 7-year-old male who has a past medical hx of multiple abdominal surgies presented to the ED with nausea and vomiting and was found have a small bowel obstruction. Today patient says he is feeling better. Denies flatus for 24 hours. NG output = 1800ml last 24 hrs. Objective Vital Signs - Last 8 Hours Temp Pulse Resp BP Pulse Ox 01/22/17 06:52 98.6 F 106 16 155/98 95 Intake and Output 01/21/17 01/22/17 01/22/17 23:59 07:59 15:59 Intake Total 1120 / 1120 1120 / 1120 0 / 0 Output Total 1650 / 1650 350 / 350 350 / 350 Balance -530 / -530 770 / 770 -350 / -350 Intake: IV Fluids 1000 / 1000 1000 / 1000 0.9 % Sodium Chloride 1,000 ML 1000 / 1000 1000 / 1000 @ 125 mls/hr IVC .Q8H IMAN Rx#: [id number] Oral 120 / 120 120 / 120 0 / 0 Output: Urine 500 / 500 350 / 350 Gastric Drainage 1150 / 1150 350 / 350 Other: Meal NPO NPO Percent of Meal Consumed 0% # Voids 1 Weight 141.929 kg Blood Glucose* 81 80 Patient Weight 01/22/17 23:59 Weight 141.929 kg - Additional Exam Constitutional: Alert, in no acute distress, well nourished, well developed. Head: NG tube present and draining, brownish/green fluid Normocephalic, atraumatic, normal contour and symmetric, no masses, lesions or scars Heart: Normal, regular rate and rhythm, no murmurs Lungs: Clear to auscultation, no wheezes, rales, or rhonchi Abdomen: mild distension and diffuse tenderness, Soft, and no masses palpable, bowel sounds present and normal, no guarding or rigidity. Extremities: No clubbing, cyanosis, or edema, radial pulse +2/4, capillary refill <2sec. Skin: Skin warm and dry, no lesions, no rashes, no jaundice Neurologic: Cranial nerves II through XII grossly intact, no focal deficits, strength within normal limits in all extremities Psych: Cooperative with exam, good eye contact, cognitive function intact, judgment good insight good, speech clear, thought process logical, and goal directed - Labs 01/22/17 03:54 01/22/17 03:54 Diabetes panel 01/21/17 01/22/17 Range/Units 04:49 03:54 Sodium 138 139 (136-145) mEq/L Potassium 4.2 3.8 (3.5-4.5) mEq/L Chloride 104 107 (98-109) mEq/L Carbon Dioxide 26 23 (19-29) mEq/L BUN 16 15 (8-26) mg/dL Creatinine 1.13 0.89 (0.72-1.25) mg/dL Glucose 105 H 85 (70-99) mg/dL Calcium 9.1 8.5 L (8.6-10.8) mg/dL AST 44 H (5-34) Units/L ALT 90 H (0-55) Units/L Alkaline Phosphatase 96 (38-126) Units/L Albumin 3.4 L (3.5-5.0) g/dL Thyroid panel 01/22/17 Range/Units 03:54 TSH 1.701 (0.350-4.840) mcIU/mL Calcium panel 01/21/17 01/22/17 Range/Units 04:49 03:54 Calcium 9.1 8.5 L (8.6-10.8) mg/dL Albumin 3.4 L (3.5-5.0) g/dL Pituitary panel 01/21/17 01/22/17 Range/Units 04:49 03:54 Sodium 138 139 (136-145) mEq/L Potassium 4.2 3.8 (3.5-4.5) mEq/L Chloride 104 107 (98-109) mEq/L Carbon Dioxide 26 23 (19-29) mEq/L BUN 16 15 (8-26) mg/dL Creatinine 1.13 0.89 (0.72-1.25) mg/dL Glucose 105 H 85 (70-99) mg/dL Calcium 9.1 8.5 L (8.6-10.8) mg/dL TSH 1.701 (0.350-4.840) mcIU/mL Adrenal panel 01/21/17 01/22/17 Range/Units 04:49 03:54 Sodium 138 139 (136-145) mEq/L Potassium 4.2 3.8 (3.5-4.5) mEq/L Chloride 104 107 (98-109) mEq/L Carbon Dioxide 26 23 (19-29) mEq/L BUN 16 15 (8-26) mg/dL Creatinine 1.13 0.89 (0.72-1.25) mg/dL Glucose 105 H 85 (70-99) mg/dL Calcium 9.1 8.5 L (8.6-10.8) mg/dL Total Bilirubin 0.7 (0.2-1.2) mg/dL AST 44 H (5-34) Units/L ALT 90 H (0-55) Units/L Alkaline Phosphatase 96 (38-126) Units/L Albumin 3.4 L (3.5-5.0) g/dL Consult Discharge Plan - Plan Referrals: NONE,PCP [Primary Care Provider] -
[2017-01-23 03:11] LABS: Basophils % 0.4 %; Eosinophils # 0.2 K/mcL (0.0-0.6); Hematocrit 36.9 % (37.5-50.1); Hemoglobin 12.3 g/dL (12.9-16.9); Immature Granulocytes % 0.6 % (0-4); Lymphocytes # 1.2 K/mcL (0.6-4.6); Lymphocytes % 14.4 %; Mean Corpuscular HGB Conc 33.3 g/dL (31.6-35.5); Mean Corpuscular Hemoglobin 30.6 pg (28.0-33.3); Mean Corpuscular Volume 91.8 fL (83.0-100.0); Mean Platelet Volume 9.5 fL (9.4-12.4); Monocytes # 0.9 K/mcL (0.0-1.3); Monocytes % 10.6 %; Neutrophils # 5.9 K/mcL (1.6-8.9); Platelet Count 194 K/mcL (140-400); Red Blood Count 4.02 M/mcL (4.19-5.50); Red Cell Distribution Width 12.7 % (11.5-14.5)
[2017-01-23 03:25] LABS: BUN/Creatinine Ratio 17 (6-26); Blood Urea Nitrogen 15 mg/dL (8-26); Calcium 8.6 mg/dL (8.6-10.8); Carbon Dioxide 23 mEq/L (19-29); Chloride 108 mEq/L (98-109); Glucose 80 mg/dL (70-99); Magnesium 1.9 mg/dL (1.6-2.6); Osmolality,Calculated 294 (280-300); Potassium 3.6 mEq/L (3.5-4.5); Sodium 142 mEq/L (136-145); eGFR For African Americans > 60 (> 60); eGFR For Non-African Americans > 60 (> 60)
[2017-01-23] MEDS: Pantoprazole 40 MG VIAL IVP SCH (05:29)
[2017-01-23] MEDS: *HR* Heparin 5,000 UNIT/ML VIAL SQ SCH ×2 (05:30→15:57)
[2017-01-23] MEDS: 0.9 % Sodium Chloride 1,000 ML IVC SCH ×2 (05:32→15:56)
--- NOTE | 2017-01-23 12:06 | Internal Med Progress Note ---
Date of Encounter: 01/23/17 Time of Encounter: 11:45 - Assessment and plan (1) Small bowel obstruction Current Visit: Yes Status: Acute Assessment and plan: Partial versus complete. Abdominal x-ray done yesterday shows decrease in size of bowel caliber. Patient has however not had any flatus. We will follow surgery recommendations. Plan for small bowel follow-through next. Continue nothing by mouth status. Okay to have ice chips. Pain control. The gastric tube to low intermittent suction. Moderate risk for complications. (2) HTN (hypertension) Current Visit: Yes Status: Chronic Assessment and plan: Blood pressure is well controlled at this time. Continue hydralazine as needed. Qualifiers: Hypertension type: essential hypertension Qualified Code(s): I10 - Essential (primary) hypertension (3) Morbid obesity with BMI of 40.0-44.9, adult Current Visit: Yes Status: Chronic (4) Tachycardia Current Visit: Yes Status: Acute Assessment and plan: Asymptomatic sinus tachycardia. Thyroid hormone levels normal. Could be related to pain and acute illness. - Subjective Interval history: Patient is awake and alert. Has not had any bowel movement yet. No flatus either. Has had about 5:15 mL nasogastric drainage output since midnight. Abdominal Pain 7 out of 10 in severity. - Constitutional Vitals: Temp Pulse Resp BP Pulse Ox 98.0 F 102 16 123/83 94 01/23/17 06:40 01/23/17 11:39 01/23/17 11:39 01/23/17 11:39 01/23/17 11:39 General appearance: Present: cooperative, mild distress, A&O X 3, morbidly obese , pleasant, answers questions appropriately - Neck Neck exam general surgery: Present: supple, trachea midline. Absent: lymphadenopathy - Respiratory Respiratory exam: Present: CTAB. Absent: accessory muscle use, rales, rhonchi, wheezes - Cardiovascular Cardiovascular exam: Present: RRR, +S1, +S2. Absent: diastolic murmur, gallop, rubs, systolic murmur - GI/Abdominal GI/Abdominal exam: Present: diminished bowel sounds, distended, soft, no peritoneal signs. Absent: tenderness - Extremities Exam Extremities exam: Present: warm, radial pulses palpable and symmetrical. Absent : calf tenderness, cyanotic, pedal edema - Neurological Exam Neurological exam: Present: alert, oriented X3, no focal deficits. Absent: facial droop, speech deficit - Skin Skin exam: Present: dry, intact Internal Medicine: Result - Labs CBC & Chem 7: 01/23/17 02:34 01/23/17 02:34 Labs: Short CBC 01/23/17 Range/Units 02:34 WBC 8.2 (4.3-11.1) K/mcL Hgb 12.3 L (12.9-16.9) g/dL Hct 36.9 L (37.5-50.1) % Plt Count 194 (140-400) K/mcL Neutrophils # 5.9 (1.6-8.9) K/mcL BMP 01/23/17 02:34 Sodium 142 Potassium 3.6 Chloride 108 Carbon Dioxide 23 BUN 15 Creatinine 0.88 Glucose 80 Calcium 8.6 Liver Function 01/23/17 Range/Units 02:34 Albumin 3.0 L (3.5-5.0) g/dL - ABG Interpretation ABG results: PT/INR, D-dimer PT 12.2 Seconds (9.4-12.1) H 01/20/17 20:15 - VTE Documentation of Mechanical Device: Intermittent pneumatic compression device Consult Discharge Plan - Plan Referrals: NONE,PCP [Primary Care Provider] -
--- NOTE | 2017-01-23 13:30 | General Surgery Progress Note ---
Date of Encounter: 01/23/17 Time of Encounter: 08:00 - Assessment and Plan (1) Small bowel obstruction Current Visit: Yes Status: Acute Abdomen pelvis CT, clinical history and exam, are consistent with a small bowel obstruction. Surgery will continue to follow along with you. Thank you for allowing us to participate in Mr. Charles's care. Patients states that abdominal pain is absent. NO flatus/ BM for the last 48 hrs. Acute abdominal series x-ray ordered and reported decreasing number/ caliber of dilated small bowl loops max is now 4.2 cm diameter (previously 5cm). Will do small bowel follow through tomorrow and if obstructed will plan for surgery to follow. Plan: - IV fluid hydration NS @100ml/hr - small bowel follow through in the morning - continue supportive care and discomfort management - consider adding TPN tomorrow -continue NG to low intermittent wall suction -continue NPO with ice chips -continue G.I. prophylaxis (2) Tachycardia Current Visit: Yes Status: Acute See above for further assessment and plan. Pt denies cardiac history, but has poor R wave progression and presumed new LAD. No elevated WBC or source of infection. (3) DVT prophylaxis Current Visit: Yes Status: Acute Patient was tachycardic upon presentation and remains tachy. Although he does have a small bowel obstruction, given his recent surgical procedure ruling out DVT/PE is not out of the question. Management per primary team, and continue to follow along. SQ Heparin. Subjective Narrative: Patient is a 7-year-old male who has a past medical hx of multiple abdominal surgies presented to the ED with nausea and vomiting and was found have a small bowel obstruction. Today patient says he is feeling better. Negative flatus. NO abdominal pain Denies flatus for 24 hours. NG output= 1650ml last 24 hrs. Objective - Additional Exam Constitutional: Alert, in no acute distress, well nourished, well developed. Head: NG tube present and draining, clear to light green fluid Normocephalic, atraumatic, normal contour and symmetric, no masses, lesions or scars Heart: Normal, regular rate and rhythm, no murmurs Lungs: Clear to auscultation, no wheezes, rales, or rhonchi Abdomen: mild distension, no tenderness Soft, and no masses palpable, bowel sounds absent , no guarding or rigidity. Extremities: No clubbing, cyanosis, or edema, radial pulse +2/4, capillary refill <2sec. Skin: Skin warm and dry, no lesions, no rashes, no jaundice Neurologic: Cranial nerves II through XII grossly intact, no focal deficits, strength within normal limits in all extremities Psych: Cooperative with exam, good eye contact, cognitive function intact, judgment good insight good, speech clear, thought process logical, and goal directed - Labs 01/23/17 02:34 01/23/17 02:34 - VTE Documentation of Mechanical Device: Intermittent pneumatic compression device Consult Discharge Plan - Plan Referrals: NONE,PCP [Primary Care Provider] -
[2017-01-24] MEDS: 0.9 % Sodium Chloride 1,000 ML IVC SCH (01:28)
[2017-01-24] MEDS: Pantoprazole 40 MG VIAL IVP SCH (05:31)
[2017-01-24] MEDS: *HR* Heparin 5,000 UNIT/ML VIAL SQ SCH ×2 (05:31→17:45)
--- NOTE | 2017-01-24 06:16 | Electrocardiograph Report ---
[facility] Test Date: 2017-01-20 Pat Name: Jacques Charles Department: 104 Room: 3A37 Gender: M Emergency Medcl Emt: ILIA : [id number] Requested By: Alfie Crockett Order Number: [id number] Reading MD: Naveen Guillen DO Measurements Intervals [place] Rate: 124 P: 30 OK: 149 QRS: -55 QRSD: 74 T: 52 QT: 285 QTc: 359 Interpretive Statements SINUS TACHYCARDIA LOW QRS VOLTAGE IN PRECORDIAL LEADS POSSIBLE ANTERIOR MYOCARDIAL INFARCTION, PROBABLY OLD INFERIOR MYOCARDIAL INFARCTION, PROBABLY OLD Electronically Signed On 01-24-2017 6:14:39 EDT by Naveen Guillen DO
--- NOTE | 2017-01-24 10:53 | General Surgery Progress Note ---
Date of Encounter: 01/24/17 Time of Encounter: 10:52 - Assessment and Plan (1) Small bowel obstruction Current Visit: Yes Status: Acute Jacques states to bowel movements this a.m. that were both runny and dark. He denies abdominal discomfort at this time. He denies any history of G.I. bleeds. He did complete a SBFT this am, results pending Plan: -continue supportive care and discomfort management -serial abdominal exams -continue NG to low intermittent wall suction at this time; if SBFT is unremarkable, ok to clamp or d/c NG and start clears -continue NPO, may have one cup of ice chips every 8 hours (see above) -continue G.I. prophylaxis -If he has BM again today,will obtain bedside hemoccult study -his laboratory studies are unremarkable as of 01/23/2017, but given his reports of dark stool and continued tachycardia, will repeat labs. -consideration is given for PICC and TPN, but will hold off until small bowel follow-through results are confirmed. The above assessment plan was reviewed with the patient who verbalizes understanding and adherence. (2) Tachycardia Current Visit: Yes Status: Acute Afebrile. Remains tachycardic at 107. Asymptomatic. No overt GI signs of sepsis noted. Management per primary team. (3) DVT prophylaxis Current Visit: Yes Status: Acute Management per primary team, and continue to follow along. (4) HTN (hypertension) Current Visit: Yes Status: Chronic Management per primary team Qualifiers: Hypertension type: essential hypertension Qualified Code(s): I10 - Essential (primary) hypertension (5) Morbid obesity with BMI of 40.0-44.9, adult Current Visit: Yes Status: Chronic Management per primary team Subjective Patient reports: no new complaints, feels better, voiding w/o difficulty, flatus , bowel movement (x2 this am. reports dark and tarry), blood in stool (see above ), afebrile Objective Vital Signs - Last 8 Hours Temp Pulse Resp BP Pulse Ox 01/24/17 10:34 98.1 F 107 16 143/84 94 01/24/17 06:36 98.0 F 99 18 123/78 93 01/24/17 03:06 98.5 F 98 15 157/94 94 Intake and Output 01/23/17 01/24/17 01/24/17 23:59 07:59 15:59 Intake Total 60 / 60 1000 / 1000 Output Total 900 / 900 1100 / 1100 1600 / 1600 Balance -840 / -840 -100 / -100 -1600 / -1600 Intake: IV Fluids 1000 / 1000 0.9 % Sodium Chloride 1,000 ML 1000 / 1000 @ 100 mls/hr IVC .Q10H IMAN Rx#: [id number] Oral 60 / 60 0 / 0 Output: Urine 250 / 250 200 / 200 1200 / 1200 Gastric Drainage 650 / 650 900 / 900 400 / 400 Other: Meal NPO npo Percent of Meal Consumed 0% Stool Size Moderate Stool Consistency liquid Stool Color Green # Urine Diapers 1 # Bowel Movement Diapers 2 Blood Glucose* 77 74 84 - General physical appearance well nourished, no distress, no pain - ENT normal nares (NG tube to left nares noted), atraumatic, normocephalic - Neck Neck exam: no masses - Respiratory normal expansion, normal respiratory effort, clear to auscultation - Cardiovascular Cardiovascular exam: Present: RRR, distant heart sounds - Abdomen Abdomen: Present: bowel sounds present, soft, non tender Hernia: none - Integumentary no rash, no growths - Neurologic CN 2-12 grossly intact, normal coordination - Musculoskeletal normal gait, normal posture - Psychiatric oriented to time, oriented to person, oriented to place, speech is normal, memory intact - Labs 01/24/17 11:55 01/24/17 11:55 - VTE Documentation of Mechanical Device: Intermittent pneumatic compression device Consult Discharge Plan - Plan Referrals: NONE,PCP [Primary Care Provider] -
[2017-01-24 12:04] LABS: Basophils % 0.2 %; Eosinophils # 0.1 K/mcL (0.0-0.6); Eosinophils % 1.4 %; Hematocrit 40.3 % (37.5-50.1); Hemoglobin 13.5 g/dL (12.9-16.9); Immature Granulocytes % 0.9 % (0-4); Lymphocytes # 0.9 K/mcL (0.6-4.6); Lymphocytes % 9.9 %; Mean Corpuscular HGB Conc 33.5 g/dL (31.6-35.5); Mean Corpuscular Hemoglobin 30.8 pg (28.0-33.3); Mean Corpuscular Volume 91.8 fL (83.0-100.0); Mean Platelet Volume 9.2 fL (9.4-12.4); Monocytes # 0.7 K/mcL (0.0-1.3); Monocytes % 8.1 %; Neutrophils # 7.2 K/mcL (1.6-8.9); Platelet Count 215 K/mcL (140-400); Red Blood Count 4.39 M/mcL (4.19-5.50); Red Cell Distribution Width 12.6 % (11.5-14.5); Segmented Neutrophils % 79.5 %
[2017-01-24 12:17] LABS: Alanine Aminotransferase 46 Units/L (0-55); Albumin 3.3 g/dL (3.5-5.0); Albumin/Globulin Ratio 0.9 (1.1-2.2); Alkaline Phosphatase 93 Units/L (38-126); Aspartate Amino Transferase 24 Units/L (5-34); BUN/Creatinine Ratio 16 (6-26); Bilirubin,Total 0.5 mg/dL (0.2-1.2); Blood Urea Nitrogen 15 mg/dL (8-26); Calcium 9.1 mg/dL (8.6-10.8); Carbon Dioxide 23 mEq/L (19-29); Chloride 111 mEq/L (98-109); Globulin 3.7 g/dL (2.4-3.5); Glucose 82 mg/dL (70-99); Osmolality,Calculated 302 (280-300); Potassium 3.8 mEq/L (3.5-4.5); Sodium 146 mEq/L (136-145); eGFR For African Americans > 60 (> 60); eGFR For Non-African Americans > 60 (> 60)
--- NOTE | 2017-01-24 15:24 | Internal Med Progress Note ---
Date of Encounter: 01/24/17 Time of Encounter: 15:22 - Assessment and plan (1) Small bowel obstruction Current Visit: Yes Status: Acute Assessment and plan: Resolving with small bowel follow-through study. Patient has had 3 bowel movements today. Discussed with surgery. Plan to remove NG tube and start patient on clear liquids. We will await final results of small bowel follow- through study. Moderate risk for complications. (2) HTN (hypertension) Current Visit: Yes Status: Chronic Assessment and plan: Blood pressure remains elevated. If patient is able to tolerate clears, we will place him back on oral medications. Qualifiers: Hypertension type: essential hypertension Qualified Code(s): I10 - Essential (primary) hypertension (3) Morbid obesity with BMI of 40.0-44.9, adult Current Visit: Yes Status: Chronic (4) Tachycardia Current Visit: Yes Status: Acute Assessment and plan: Sinus tachycardia most likely due to acute illness. Asymptomatic. - Subjective Interval history: Patient underwent small bowel follow-through study this morning. He has since had 3 bowel movements. Feels much better now. NG tube is still draining bilious fluid. Abdominal distention is improving. - Constitutional Vitals: Temp Pulse Resp BP Pulse Ox 98.3 F 104 18 158/91 96 01/24/17 14:00 01/24/17 14:00 01/24/17 14:00 01/24/17 14:00 01/24/17 14:00 General appearance: Present: cooperative, mild distress, A&O X 3, morbidly obese , pleasant, answers questions appropriately - ENT Additional comments: NG tube in place - Neck Neck exam general surgery: Present: supple, trachea midline. Absent: lymphadenopathy - Respiratory Respiratory exam: Present: CTAB. Absent: accessory muscle use, rales, rhonchi, wheezes - Cardiovascular Cardiovascular exam: Present: RRR, +S1, +S2. Absent: diastolic murmur, gallop, rubs, systolic murmur - GI/Abdominal GI/Abdominal exam: Present: distended, normal bowel sounds, soft, no peritoneal signs. Absent: tenderness - Extremities Exam Extremities exam: Present: warm, radial pulses palpable and symmetrical. Absent : calf tenderness, cyanotic, pedal edema Internal Medicine: Result - Labs CBC & Chem 7: 01/24/17 11:55 01/24/17 11:55 Labs: Short CBC 01/24/17 Range/Units 11:55 WBC 9.1 (4.3-11.1) K/mcL Hgb 13.5 (12.9-16.9) g/dL Hct 40.3 (37.5-50.1) % Plt Count 215 (140-400) K/mcL Neutrophils # 7.2 (1.6-8.9) K/mcL BMP 01/24/17 11:55 Sodium 146 H Potassium 3.8 Chloride 111 H Carbon Dioxide 23 BUN 15 Creatinine 0.91 Glucose 82 Calcium 9.1 Liver Function 01/24/17 Range/Units 11:55 Total Bilirubin 0.5 (0.2-1.2) mg/dL AST 24 (5-34) Units/L ALT 46 (0-55) Units/L Alkaline Phosphatase 93 (38-126) Units/L Albumin 3.3 L (3.5-5.0) g/dL - ABG Interpretation ABG results: PT/INR, D-dimer PT 12.2 Seconds (9.4-12.1) H 01/20/17 20:15 - Impressions Impressions Small Bowel X-Ray 01/24/17 05:00 IMPRESSION: Abnormal appearance in the proximal small bowel suspicious for small bowel hematoma. Clinical correlation is recommended. These results were sent to results communications to be called to a license caregiver D/ / Neftali Worthington MD / Neftali Worthington MD Interpreting Provider: Neftali Worthington MD - VTE Documentation of Mechanical Device: Intermittent pneumatic compression device Consult Discharge Plan - Plan Referrals: NONE,PCP [Primary Care Provider] -
[2017-01-25] MEDS: Pantoprazole 40 MG VIAL IVP SCH (05:53)
[2017-01-25] MEDS: *HR* Heparin 5,000 UNIT/ML VIAL SQ SCH (05:54)
--- NOTE | 2017-01-25 11:36 | General Surgery Progress Note ---
Date of Encounter: 01/25/17 Time of Encounter: 09:30 - Assessment and Plan (1) Small bowel obstruction Current Visit: Yes Status: Acute Patient initially presented to the hospital on 01/20/17 with chief complaint of nausea, vomiting, and abdominal pain. -His abdomen and pelvis CT, clinical history and exam, were consistent with small bowel obstruction. -Patient states that he had several bowel movements last night. -Physical pain and distention since subsided. -NG tube was removed yesterday. -Patient started on clear liquids. -Small bowel follow-through study performed on 01/24/17 demonstrated the appearance of a possible hematoma in the proximal small bowel. Normal transit time. -There is a stacked coin appearance to the proximal small bowel, possibly indicative of hematoma. -Surgery will sign out; call for any further questions or concerns. (2) DVT prophylaxis Current Visit: Yes Status: Acute Management per primary team, heparin 5000 subcutaneous every 12. (3) HTN (hypertension) Current Visit: Yes Status: Chronic Management per primary team. Qualifiers: Hypertension type: essential hypertension Qualified Code(s): I10 - Essential (primary) hypertension (4) Morbid obesity with BMI of 40.0-44.9, adult Current Visit: Yes Status: Chronic Subjective Patient reports: no new complaints, feels better, pain is less Narrative: Patient was seen and examined at bedside this morning. Patient states that he is feeling much better today than he was during admission. Patient admits to having several bowel movements last night. He denies the presence of blood in his bowel movements. He has not had an episode of vomiting for the last several days. He states that his abdominal pain, which was previously in the epigastric area has since subsided. His abdominal distention has also resolved. His NG tube was removed yesterday, and he denies having any complications. He currently denies nausea, vomiting, bloating, abdominal pain, shortness of breath, fever, chills, or urinary symptoms. He has no complaints at this time. Objective Vital Signs - Last 8 Hours Temp Pulse Resp BP Pulse Ox 01/25/17 10:59 98.3 F 98 18 136/90 95 01/25/17 07:00 98.2 F 88 18 135/84 94 Intake and Output 01/24/17 01/25/17 01/25/17 23:59 07:59 15:59 Intake Total 0 / 0 0 / 0 0 / 0 Output Total 0 / 0 0 / 0 0 / 0 Balance 0 / 0 0 / 0 0 / 0 Intake: Oral 0 / 0 0 / 0 0 / 0 Output: Urine 0 / 0 0 / 0 0 / 0 Other: Weight 141.748 kg Patient Weight 01/25/17 23:59 Weight 141.748 kg - General physical appearance well developed, well nourished, no distress, severe distress - Neck Neck exam: no masses, trachea midline, no lymphadectomy - Respiratory normal expansion, normal respiratory effort, clear to percussion, clear to auscultation - Cardiovascular Cardiovascular exam: Present: RRR, regular rhythm, no murmurs/rubs/gallops. Absent: clicks, rubs, gallop, JVD - Abdomen Abdomen: Present: bowel sounds present, soft, non tender, surgical scars. Absent: tender, organomegaly, masses - Musculoskeletal normal gait, normal posture - Psychiatric oriented to time, oriented to person, oriented to place, speech is normal, memory intact - Labs 01/24/17 11:55 01/24/17 11:55 Diabetes panel 01/24/17 Range/Units 11:55 Sodium 146 H (136-145) mEq/L Potassium 3.8 (3.5-4.5) mEq/L Chloride 111 H (98-109) mEq/L Carbon Dioxide 23 (19-29) mEq/L BUN 15 (8-26) mg/dL Creatinine 0.91 (0.72-1.25) mg/dL Glucose 82 (70-99) mg/dL Calcium 9.1 (8.6-10.8) mg/dL AST 24 (5-34) Units/L ALT 46 (0-55) Units/L Alkaline Phosphatase 93 (38-126) Units/L Albumin 3.3 L (3.5-5.0) g/dL Calcium panel 01/24/17 Range/Units 11:55 Calcium 9.1 (8.6-10.8) mg/dL Albumin 3.3 L (3.5-5.0) g/dL Pituitary panel 01/24/17 Range/Units 11:55 Sodium 146 H (136-145) mEq/L Potassium 3.8 (3.5-4.5) mEq/L Chloride 111 H (98-109) mEq/L Carbon Dioxide 23 (19-29) mEq/L BUN 15 (8-26) mg/dL Creatinine 0.91 (0.72-1.25) mg/dL Glucose 82 (70-99) mg/dL Calcium 9.1 (8.6-10.8) mg/dL Adrenal panel 01/24/17 Range/Units 11:55 Sodium 146 H (136-145) mEq/L Potassium 3.8 (3.5-4.5) mEq/L Chloride 111 H (98-109) mEq/L Carbon Dioxide 23 (19-29) mEq/L BUN 15 (8-26) mg/dL Creatinine 0.91 (0.72-1.25) mg/dL Glucose 82 (70-99) mg/dL Calcium 9.1 (8.6-10.8) mg/dL Total Bilirubin 0.5 (0.2-1.2) mg/dL AST 24 (5-34) Units/L ALT 46 (0-55) Units/L Alkaline Phosphatase 93 (38-126) Units/L Albumin 3.3 L (3.5-5.0) g/dL - VTE Documentation of Mechanical Device: Intermittent pneumatic compression device Consult Discharge Plan - Plan Referrals: NONE,PCP [Primary Care Provider] -
[2017-01-25 14:21] VITALS: BP 108/70
--- NOTE | 2017-01-25 15:34 | Discharge Summary ---
Date of Encounter: 01/25/17 Time of Encounter: 15:29 - Discharge Diagnosis (1) Small bowel obstruction Priority: Primary Status: Acute (2) HTN (hypertension) Priority: Secondary Status: Chronic Qualifiers: Hypertension type: essential hypertension Qualified Code(s): I10 - Essential (primary) hypertension (3) Morbid obesity with BMI of 40.0-44.9, adult Priority: Secondary Status: Chronic (4) History of ureter repair Priority: Secondary Status: Chronic - Discharge Medications Home Medications: Cyclobenzaprine [Flexeril] 10 mg PO TID PRN 01/20/17 [History] Indomethacin 75 mg PO DAILY 01/20/17 [History] Lisinopril [Zestril] 20 mg PO DAILY 01/20/17 [History] Multivitamin [One Daily Multivitamin] 1 each PO DAILY 01/20/17 [History] Niacin [Plain Niacin] 500 mg PO DAILY 01/20/17 [History] Omeprazole [PriLOSEC] 40 mg PO DAILY 01/20/17 [History] Oxycodone HCl/Acetaminophen [Percocet 5-325 mg Tablet] 1 each PO Q8H PRN [History] Allergies/Adverse Reactions: 3 Allergy/AdvReac Type Severity Reaction Status Date / Time No Known Allergies Allergy Verified 01/20/17 19:56 Date of admission: 01/23/17 12:18 Primary care physician: PCP NONE Discharging clinician: Lefty Muhammad - Patient Status Disposition: Home, Self-Care Condition: Good Overall status at discharge: patient is progressing back to baseline - Discharge Instructions Instructions: Bowel Obstruction (DC) Follow Up With: Donell Ndiaye [Other] - 02/04/17 10:45 am - Diet and Activity Activity: ambulate only with your walker Diet: low fat, low cholesterol, low salt diet Hospital course: Mr. Charles is a 61 year old male with a PMH of HTN, chronic back pain, ureteral surgeries, and morbid obesity that presented from home c/o constant abd pain for the past 2 days. Pain is 7/10 severity, located in the epigastric region, and associated with anorexia, nausea, vomiting, diaphoresis, and palpitations. He reports bowel movement 3 days ago then had three loose bowel movements today prior to arrival. 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 Patient denies fever, chills, CP, SOB, hematemesis, hematochezia, melena, or recent sick contacts. Patient is on Indomethacin twice a day for headaches. In the ED, CT abd/plv revealed SBO, surgeon/Dr. Sun was consulted, and NG tube was placed. His NG tube did drain 1200 mL of fluid upon placement. His CBC was unremarkable. He was noted to have a low grade fever which resolved, no other indications of sepsis or acute surgical abdomen. Acute abdominal series x-ray ordered and reported decreasing number/ caliber of dilated small bowl loops. A small bowel follow-through series was performed on 01/24/17. It showed a nonobstructive bowel gas pattern. Without any strictures or obstructions. Was noted that there was a stacked coin appearance which may be seen with small bowel hematoma. NG tube was removed on He did report feeling much better his diet was advanced and he was able to without issue. He had no bloody bowel movements or dark black stool. At several bowel movements the night prior to discharge. Patient overall felt well handled breakfast and lunch. He was discharged home. I instructed patient not to take Bentyl, as there is caution with taking this in the setting of small bowel obstruction. He agrees to discuss with his primary care physician if or when he should resume Bentyl. - Time Spent with Patient Total time spent providing and/or coordinating discharge services: - Constitutional Vitals: Temp Pulse Resp BP Pulse Ox 98.5 F 97 18 108/70 95 01/25/17 14:13 01/25/17 14:13 01/25/17 14:13 01/25/17 14:13 01/25/17 14:13 General appearance: Present: cooperative, mild distress, A&O X 3, morbidly obese , pleasant, answers questions appropriately Exam: well developed, well nourished, no distress, severe distress - Neck Neck exam: no masses, trachea midline, no lymphadectomy - Respiratory normal expansion, normal respiratory effort, clear to percussion, clear to auscultation - Cardiovascular Cardiovascular exam: Present: RRR, regular rhythm, no murmurs/rubs/gallops. Absent: clicks, rubs, gallop, JVD - Abdomen Abdomen: Present: bowel sounds present, soft, non tender, surgical scars. Absent: tender, organomegaly, masses - VTE Documentation of Mechanical Device: Intermittent pneumatic compression device
== END 2017-01-25 16:37 | disposition home or self-care (01) | DRG 389 ==
LOC: 3ANU 19:37 → EMEROO 19:37 → SUATTDRO 22:23 → 3ANU 22:40 → SUATTDRO 01-23 12:18
PROVIDERS: ADMIT Internal Medicine; ATTEND Student in an Organized Health Care Education/Training Program